=== PATIENT | female | born 1990 | race Caucasian/White ===

== ENCOUNTER 2019-06-25 05:33 | Inpatient (IN) | payer OTHER ==
[2019-06-25] MEDS ORDERED: CITRIC ACID/SODIUM CITRATE 30 ML UNIT-DOSE CUP PO ONE ×2 (07:32→07:34)
[2019-06-25] MEDS ORDERED: ELECTROLYTE-148 SOLN 500 ML IV ONE (07:32)
[2019-06-25] MEDS ORDERED: ceFAZolin 2 GRAM PREMIX BAG IVPB ONE (07:35)
[2019-06-25 07:36] VITALS: BMI 30.9
[2019-06-25] MEDS ORDERED: ELECTROLYTE-148 SOLN 1,000 ML IV SCH (07:45)
[2019-06-25] MEDS ORDERED: OXYTOCIN 20 UNITS in 0.9% NS 20 UNIT/1,000 ML INFUS.BAG IV ONE ×2 (08:03→09:16)
[2019-06-25] MEDS ORDERED: morphine SULFATE/PF 0.5 MG/ML (2cc Syringe - QUVA) ONE (08:08)
[2019-06-25] MEDS ORDERED: PROPOFOL 20 ML ONE (08:08)
[2019-06-25] MEDS ORDERED: SUCCINYLCHOLINE CHLORIDE 200 MG/10 ML SYRINGE ONE (08:09)
[2019-06-25] MEDS ORDERED: ePHEDrine SULFATE 50 MG/1 ML AMPULE ONE (08:09)
--- NOTE | 2019-06-25 08:18 | HP ---
Past Medical History - Primary Care Physician PCP:: Wesly Mora - Admission Chief Complaint: Scheduled repeat CD History of Present Illness: patient is doing well and all questions answered. Risks and complications of procedures discussed. History Source: Patient Limitations to Obtaining History: No Limitations - Past Medical History CARDIAC CATH TECH: No: Alzheimer's, CVA, Dementia, Migraine, Multiple Sclerosis, Peripheral Neuropathy, Parkinson's, Seizure, Syncope, TIA, Vertigo, Other Cardiovascular: No: AFIB, Aneurysm, Aortic Insufficiency, Aortic Stenosis, CAD, CHF, Deep Vein Thrombosis, HTN, Hyperlipdemia, ID, Mitral Insufficiency, Mitral Stenosis, Murmur, Pulmonary Hypertension, Other Pulmonary: No: Asthma, Bronchitis, Cancer, COPD, O2 Dependent, Pneumonia, Previously Intubated, Pulmonary Embolus, Pulmonary Fibrosis, Sleep Apnea, Other Gastrointestinal: No: Ascites, Cancer, Constipation, Crohn's Disease, Diverticulitis, Diverticulosis, Esophageal Varices, Gastritis, GERD, GI Bleed, Hemorrhoids, Hiatal Hernia, Inflamatory Bowel Disease, Irritable Bowel Disease, Pancreatitis, Peptic Ulcer Disease, Ulcerative Colitis, Other Hepatobiliary: No: Cirrhosis, Cholelithiasis, Cholecystitis, Choledocholithiasis , Hepatitis A, Hepatitis B, Hepatitis C, Other Renal/: No: Renal Failure, Renal Inusuff, BPH, Cancer, Hematuria, Hemodialysis , Neurogenic Bladder, Renal Calculi, UTI, Other Reproductive: No: Ectopic , Endometriosis, Fibroids, PID, Polycystic Ovary Syndrome, Postmenopausal, Other ...: 2 ...Para: 1 ...Term: 1 ...: 0 ...Spon : 0 ...Induced : 0 ...Multiple Gestation: 0 ...LMP: 09/06/18 ... Weeks Gestation by Dates: 41.5 ...EDC by Dates: 06/13/19 ...EDC by Sono: 07/02/19 Heme/Onc: No: Anemia, B12 Deficiency, Bleeding Disorder, Cancer, Current Chemotherapy, Current Radiation Therapy, Hemochromatosis, Hypercoaguable State, Myeloproliferative Synd, Sickle Cell Disease, Sickle Cell Trait, Thrombocytopenia, Other Infectious Disease: No: AIDS, C-Diff, Herpes Zoster, HIV, MRSA, STD's, Tuberculosis, VREF, Other Psych: No: Addictions, Anxiety, Bipolar, Depression, Panic, Psychosis, Schizophrenia, Other Musculoskeletal: No: Bursitis, Chronic low back pain, Hemiparesis, Hemiplegia, Osteoarthritis, Paraplegia, Other Rheumatology: No: Fibromyalgia, Gout, Lupus, Rheumatoid Arthritis, Sarcoidosis, Vasculitis, Other ENT: No: Allergic Rhinitis, Sinusitis, Other Endocrine: No: Preble's Disease, Gadsden's Disease, Diabetes Insipidus, Diabetes Mellitus, Hyperparathyroidism, Hyperthyroidism, Hypothyroidism, Osteopenia, SIADH, Other Dermatology: No: Basal Cell, Cellulitis, Eczema, Melanoma, Psoriasis, Squamous Cell, Other - Past Surgical History Past Surgical History: Yes: Hx Myomectomy: No Hx Transabdominal Cerclage: No - Smoking History Smoking history: Never smoked Have you smoked in the past 12 months: No - Alcohol/Substance Use Hx Alcohol Use: No Home Medications - Allergies Allergies/Adverse Reactions: Allergies Allergy/AdvReac Type Severity Reaction Status Date / Time No Known Allergies Allergy Verified 06/25/19 07:38 - Home Medications Home Medications: Ambulatory Orders Vits96/Iron Fum/Folic [ Tablet] 1 tablet PO DAILY 04/22/19 Insulin NPH [Novolin N Vial -] 8 units SQ DAILY 06/25/19 Insulin NPH [Novolin N Vial -] 24 units SQ HS 06/25/19 Family Medical History Family History: Unremarkable Review of Systems - Review of Systems Constitutional: reports: No Symptoms, Weakness Eyes: reports: No Symptoms HENT: reports: No Symptoms, Ocular Prosthesis Neck: reports: No Symptoms Cardiovascular: reports: No Symptoms Respiratory: reports: No Symptoms Gastrointestinal: reports: No Symptoms Genitourinary: reports: No Symptoms Breasts: reports: No Symptoms Reported Musculoskeletal: reports: No Symptoms Integumentary: reports: No Symptoms Endocrine: reports: No Symptoms Hematology/Lymphatic: reports: No Symptoms Psychiatric: reports: No Symptoms Physical Exam - Maternity Vital Signs: Vital Signs Temperature 97.7 F 06/25/19 05:33 Pulse Rate 86 06/25/19 05:33 Respiratory Rate 18 06/25/19 05:33 Blood Pressure 103/74 06/25/19 05:33 O2 Sat by Pulse Oximetry (%) Constitutional: Yes: Well Nourished, Calm HENT: Yes: Atraumatic Neck: Yes: Supple Cardiovascular: Yes: Regular Rate and Rhythm Breast(s): Yes: Other (deferred) - Abdominal Exam/OB Number of Fetuses: Single Presentation: Vertex Contractions: No Regularity: Irritability Monitor Mode: External Heart Rate (range): 130 Category: I Accelerations: Uniform Decelerations: None - Vaginal Exam/OB Speculum Exam: No - Physical Exam Musculoskeletal: Yes: WNL Extremities: Yes: WNL Edema: Yes Edema: LLE: Trace, RLE: Trace Integumentary: Yes: WNL ...Motor Strength: WNL Psychiatric: Yes: Alert, Oriented Imaging - Results Ultrasound: Report Reviewed Problem List - Problems (1) Previous delivery affecting Code(s): O34.219 - MATERNAL CARE FOR UNSP TYPE SCAR FROM PREVIOUS DEL (2) Gestational diabetes mellitus (GDM) Code(s): O24.419 - GESTATIONAL DIABETES MELLITUS IN , UNSP CONTROL Assessment/Plan 29 y/o @ 39.0wks previous CD and desiring repeat, well controlled A2GDM, reassuring status. Risks and complications discussed. All questions answered and informed consent obtained. -Proceed as planned
[2019-06-25] MEDS ORDERED: oxyCODONE HCL 5 MG TABLET PO PRN (09:18)
[2019-06-25] MEDS ORDERED: morphine SULFATE/PF 0.5 MG/ML (2cc Syringe - QUVA) EP ONE (09:20)
[2019-06-25] MEDS ORDERED: OXYTOCIN 20 UNITS in 0.9% NS 20 UNIT/1,000 ML INFUS.BAG IV SCH (09:30)
--- NOTE | 2019-06-25 09:39 | OP ---
Operative Note - Note: Operative Date: 06/25/19 (Dic # [id number]) Pre-Operative Diagnosis: Previous CD, GDM, desiring repeat Operation: PLTCD Findings: see dictation Post-Operative Diagnosis: Same as Pre-op Surgeon: Wesly Mora Seismograph Computer: Lamin Chavira Anesthesia: Spinal Estimated Blood Loss (mls): 700 Fluid Volume Replaced (mls): 1,000 Operative Report Dictated: Yes
[2019-06-25] MEDS ORDERED: IBUPROFEN 800 MG/8 ML IJ IVPB ONE ×2 (09:58→10:04)
[2019-06-25] MEDS: IBUPROFEN 800 MG/8 ML IJ IVPB PRN ×2 (10:00→20:58)
[2019-06-25] MEDS ORDERED: ONDANSETRON 4 MG/2 ML VIAL IVPUSH PRN (10:03)
--- NOTE | 2019-06-25 13:19 | OP ---
DATE OF OPERATION: 06/25/2019 PREOPERATIVE DIAGNOSES: A 29-year-old, 2, para 1, at 39 weeks of gestation; A2 gestational diabetes, well controlled; prior section, desiring repeat. POSTOPERATIVE DIAGNOSES: A 29-year-old, 2, para 1, at 39 weeks of gestation; A2 gestational diabetes, well controlled; prior section, desiring repeat. PROCEDURE: Repeat low transverse section. SURGEON: Manuel Cervantes MD WEATHER FORECASTER: HANH Amaya ESTIMATED BLOOD LOSS: 700. ANESTHESIA: Spinal. INTRAVENOUS FLUIDS: 1 L of crystalloid. URINE: Clear. COMPLICATIONS: None. FINDINGS: A lower abdominal scar consistent with prior section. A moderate amount of subcutaneous fibrotic tissue. The fascia was taken adherent to the underlying rectus muscles. The rectus muscles were fused to each other in the midline. No parietal or peritoneal adhesions. The bladder was slightly adherent to the lower uterine segment. The lower uterine segment was slightly effaced. in cephalic presentation, clear amniotic fluid scant. Ureters and bilateral tubes and ovaries consistent with normal anatomy. Bladder dome and rectus muscle fascial interface dry with no evidence of trauma. PROCEDURE: The patient was taken to the operating room where anesthesia was found to be adequate. She was then prepped and draped in the normal sterile fashion. Urinary Ríos catheter was properly and atraumatically placed. Appropriate timeout took place. A Pfannenstiel skin incision was made following prior section scar. Incision carried to underlying fascia with the Bovie. The fascia was incised in the midline and incision was extended laterally with sharp dissection. The underlying rectus muscles were dissected off sharply. The rectus muscles were in the midline superiorly. Entry into the peritoneal cavity revealed no adhesions. Incision was extended inferiorly with sharp dissection. A bladder blade was placed in the lower uterine segment as noted above. A lower uterine segment incision was made with the scalpel approximately 5 cm above the vesicouterine junction and incision extended laterally with blunt dissection. Amniotomy revealed clear amniotic fluid and scant. Infant delivered through the surgical incision with mild fundal pressure. Loose nuchal cord removed. Cord clamped after delay. handed off to the NICU staff. Placenta delivered manually and intact. Uterus exteriorized and the intrauterine cavity cleared of all clots and debris. Lower uterine segment incision reapproximated with 1-0 Polysorb running locked sutures with excellent structural reapproximation and hemostasis achieved with one-layer suture. The uterus internalized to the pelvic cavity and gutters cleared of all clots and debris. The bladder dome and rectus muscle fascial interface examined and as noted above. Fascial incision reapproximated with 0 Polysorb running nonlocked suture with excellent structural reapproximation achieved and confirmed by deep palpation by the surgeon. Subcutaneous tissues were copiously irrigated and bleeders neutralized with Bovie cautery. Skin incision was reapproximated with surgical jadon. Instrument count reported as correct x2 by the staff. MANUEL CERVANTES MD [id number] MTDD
--- NOTE | 2019-06-26 08:40 | PN ---
Post Progress Note - Subjective Subjective: Doing well. Pain controlled. No fevers/chills. Type of Delivery: Repeat C/S Vital Signs: Vital Signs Temperature 97.8 F 06/26/19 06:00 Pulse Rate 116 H 06/26/19 06:00 Respiratory Rate 18 06/26/19 06:00 Blood Pressure 121/73 06/26/19 06:00 O2 Sat by Pulse Oximetry (%) 98 06/25/19 10:05 Uterus: Yes: Fundus below umbilicus Abdomen/GI: Yes: Abdomen soft, Passing flatus, Tolerating PO Lochia: Yes: Rubra Lochia, amount: Small Extremities: Yes: Calves non-tender Perineum: Yes: Intact Activity: Ambulating Assessment/Plan 29yo s/p RLTCS, POD#1 Routine PP care PO pain control Labs reviewed D/C SHAN Ríos Anticipate d/c to home by POD#4 Mari Palmer MD
[2019-06-26] MEDS: IBUPROFEN 800 MG/8 ML IJ IVPB PRN (08:48)
[2019-06-26 08:56] LABS: BASO % 0.3 % (0-2.0); EOS % 0.7 % (0-4.5); HEMATOCRIT 36.4 % (32.4-45.2); HEMOGLOBIN 12.2 GM/dL (10.7-15.3); LYMPH % 9.7 % (8-40); MCH 29.9 pg (25.7-33.7); MCHC 33.6 g/dl (32.0-36.0); MEAN CELL VOLUME 89.1 fl (80-96); MEAN PLT VOLUME 8.3 fl (7.5-11.1); MONO % 4.5 % (3.8-10.2); NEUT % 84.8 % (42.8-82.8); PLATELET COUNT 281 K/MM3 (134-434); RBC 4.09 M/mm3 (3.60-5.2); RDW 13.4 % (11.6-15.6); WHITE BLOOD COUNT 18.1 K/mm3 (4.0-10.0)
[2019-06-26] MEDS ORDERED: BISACODYL 10 MG SUPP.RECT RC PRN (09:19)
[2019-06-26] MEDS ORDERED: FLU VACCINE QUAD 60 MCG/0.5 ML (MDV 19-20) IM ONE (10:00)
[2019-06-26] MEDS ORDERED: FLU VACC QS2019-20(6MOS UP)/PF 60 MCG/0.5 ML SYRINGE IM ONE (10:00)
[2019-06-26] MEDS ORDERED: DIPHTH,PERTUSS(ACELL),TET 0.5 ML DISP.SYRIN IM ONE (10:00)
--- NOTE | 2019-06-26 10:24 | PN ---
Progress Note (short form) - Note Progress Note: Anesthesia Post Op Note Pt s/p spinal for c/section Pt awake alert denies n/v; h/a Ambulating well, don in situ Pain well controlled VSS no apparent anesthesia complications Coleen Sears.
[2019-06-26] MEDS: IBUPROFEN 600 MG TABLET (FP) PO PRN (19:12)
[2019-06-26] MEDS: ACETAMINOPHEN 325 MG TABLET (FP) PO PRN (19:12)
[2019-06-26] MEDS: SIMETHICONE 80 MG TAB.CHEW (FP) PO PRN (19:12)
[2019-06-27] MEDS: ACETAMINOPHEN 325 MG TABLET (FP) PO PRN ×3 (02:09→20:50)
[2019-06-27] MEDS: IBUPROFEN 600 MG TABLET (FP) PO PRN ×3 (02:10→20:50)
[2019-06-27] MEDS: SIMETHICONE 80 MG TAB.CHEW (FP) PO PRN ×3 (02:10→20:49)
--- NOTE | 2019-06-27 14:00 | PN ---
Post Progress Note - Subjective Subjective: Doing well. Pain controlled. No fevers/chills. Ambulating w/o difficulty Type of Delivery: Repeat C/S Vital Signs: Vital Signs Temperature 98.0 F 06/27/19 10:00 Pulse Rate 91 H 06/27/19 10:00 Respiratory Rate 17 06/27/19 10:00 Blood Pressure 104/73 06/27/19 10:00 O2 Sat by Pulse Oximetry (%) 98 06/25/19 10:05 Uterus: Yes: Fundus Firm Incision: Yes: Dressing dry and intact, Goodwin intact Abdomen/GI: Yes: Abdomen soft Lochia: Yes: Rubra Lochia, amount: Small Extremities: Yes: Calves non-tender Activity: Ambulating - Labs Labs: CBC WBC 18.1 K/mm3 (4.0-10.0) H 06/26/19 08:10 RBC 4.09 M/mm3 (3.60-5.2) 06/26/19 08:10 Hgb 12.2 GM/dL (10.7-15.3) 06/26/19 08:10 Hct 36.4 % (32.4-45.2) 06/26/19 08:10 MCV 89.1 fl (80-96) 06/26/19 08:10 MCH 29.9 pg (25.7-33.7) 06/26/19 08:10 MCHC 33.6 g/dl (32.0-36.0) 06/26/19 08:10 RDW 13.4 % (11.6-15.6) 06/26/19 08:10 Plt Count 281 K/MM3 (134-434) 06/26/19 08:10 MPV 8.3 fl (7.5-11.1) 06/26/19 08:10 Absolute Neuts (auto) 15.3 K/mm3 (1.5-8.0) H 06/26/19 08:10 Neutrophils % 84.8 % (42.8-82.8) H 06/26/19 08:10 Lymphocytes % 9.7 % (8-40) D 06/26/19 08:10 Monocytes % 4.5 % (3.8-10.2) 06/26/19 08:10 Eosinophils % 0.7 % (0-4.5) D 06/26/19 08:10 Basophils % 0.3 % (0-2.0) 06/26/19 08:10 Nucleated RBC % 0 % (0-0) 06/26/19 08:10 Assessment/Plan 29yo s/p RLTCS, POD#2 Routine PP care PO pain control Labs reviewed Anticipate d/c to home tomorrow per pt request Mari Pamler MD
[2019-06-28 07:47] VITALS: BP 120/81; PULSE 82; TEMP 98.2
[2019-06-28 07:59] LABS: BASO % 0.4 % (0-2.0); EOS % 2.1 % (0-4.5); HEMATOCRIT 34.8 % (32.4-45.2); LYMPH % 20.9 % (8-40); MCH 30.7 pg (25.7-33.7); MCHC 34.4 g/dl (32.0-36.0); MEAN CELL VOLUME 89.4 fl (80-96); MEAN PLT VOLUME 8.2 fl (7.5-11.1); NEUT % 70.6 % (42.8-82.8); PLATELET COUNT 310 K/MM3 (134-434); RBC 3.89 M/mm3 (3.60-5.2); RDW 13.3 % (11.6-15.6); WHITE BLOOD COUNT 10.7 K/mm3 (4.0-10.0)
--- NOTE | 2019-06-28 10:02 | DS ---
Physical Examination Vital Signs: Vital Signs Temperature 98.2 F 06/28/19 07:46 Pulse Rate 82 06/28/19 07:46 Respiratory Rate 14 06/28/19 07:46 Blood Pressure 120/81 06/28/19 07:46 O2 Sat by Pulse Oximetry (%) 98 06/25/19 10:05 Constitutional: Yes: Well Nourished, No Distress, Calm Eyes: Yes: WNL, Conjunctiva Clear, EOM Intact HENT: Yes: WNL, Atraumatic, Normocephalic Neck: Yes: WNL, Supple, Trachea Midline Cardiovascular: Yes: WNL, Regular Rate and Rhythm Respiratory: Yes: WNL, Regular, CTA Bilaterally Gastrointestinal: Yes: WNL, Normal Bowel Sounds Musculoskeletal: Yes: WNL Extremities: Yes: WNL Edema: No Integumentary: Yes: WNL Neurological: Yes: WNL, Alert, Oriented ...Motor Strength: WNL Psychiatric: Yes: WNL Labs: CBC, BMP 06/28/19 06:57 Discharge Summary Problems reviewed: Yes Reason For Visit: C SECTION Current Active Problems Gestational diabetes mellitus (GDM) (Acute) Previous delivery affecting (Acute) Hospital Course: Patient presented for a scheduled RLTCS She had an uncomplicated procedure She met all postoperative milestones She was discharged home on POD#3 in stable condition Condition: Stable - Instructions Diet, Activity, Other Instructions: Please return to regulardiet as tolerated, activity as recommended by physician. Follow up within a week for incision check. Call MD with any questions or concerns. Referrals: Mike Jones [Primary Care Provider] - Wesly Mora MD [Staff Physician] - Disposition: HOME - Home Medications Comprehensive Discharge Medication List: Ambulatory Orders Vits96/Iron Fum/Folic [ Tablet] 1 tablet PO DAILY 04/22/19 Acetaminophen [Tylenol] 650 mg PO Q6H PRN #20 capsule MDD 5 06/25/19 Ibuprofen 600 mg PO Q6H PRN #30 tablet 06/25/19 Insulin NPH [Novolin N Vial -] 8 units SQ DAILY 06/25/19 Insulin NPH [Novolin N Vial -] 24 units SQ HS 06/25/19 Oxycodone HCl 5 mg PO Q6H PRN #12 tablet MDD 5 06/25/19
--- NOTE | 2019-06-30 16:13 | PATH ---
Surgical Pathology Report Patient Name: ALANNAH GOMEZ Med. Rec. 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 Electronically Signed Celine Schwartz M.D. Gross Description The specimen is received fresh labeled placenta and is a 405 gram, 15.5 x 13.5 x 2.8 cm. placenta with attached membranes and umbilical cord. The attached membranes are cruz, thick, cloudy and insert marginally. The umbilical cord measures 33 cm. in length and averages 1 cm. in diameter. The cord inserts eccentrically, 3 cm. to the nearest margin. No true knots or strictures are identified. Cut surface of the umbilical cord reveals 3 vessels. The surface is redd-blue with minimal fibrin deposition and appropriate caliber vessels. The maternal surface is red-brown with focal defects. Sectioning reveals red-brown, spongy parenchyma. No lesions are identified. Termite Inspector sections are submitted in three cassettes as follows: 1- membrane rolls and umbilical cord; 2-3- full thickness sections of placenta. /06/27/2019 [facility]06/27/2019
== END 2019-06-28 14:05 | disposition home or self-care (01) | DRG 540 ==
LOC: JLDR 05:33 → J3W 10:58
PROVIDERS: ADMIT Student in an Organized Health Care Education/Training Program; ATTEND Student in an Organized Health Care Education/Training Program
PROC: 10D00Z1 Extraction of Products of Conception, Low, Open Approach (ICD-10-PCS; principal; 2019-06-25)
DX: O24.429 Gestational diabetes mellitus in childbirth, unspecified control (principal); O34.219 Maternal care for unspecified type scar from previous cesarean delivery; Z3A.39 39 weeks gestation of pregnancy; Z37.0 Single live birth
CPT/HCPCS: 36415; 82962; 85025; 88307-TC; 90686; 90715; G0008

== ENCOUNTER 2021-01-18 16:15 | Emergency (ER) | payer OTHER ==
[2021-01-18 16:35] VITALS: BP 118/85; PULSE 85; TEMP 98.4; BMI 28.7
[2021-01-18] MEDS ORDERED: ONDANSETRON 4 MG/2 ML VIAL IVPUSH ONE (17:03)
[2021-01-18] MEDS ORDERED: SODIUM CHLORIDE 1,000 ML IV STA (17:03)
[2021-01-18] MEDS ORDERED: MAG HYDROX/AL HYDROX/SIMETH 30 ML UNIT-DOSE CUP PO ONE (17:05)
[2021-01-18] MEDS ORDERED: FAMOTIDINE 10 MG TABLET PO ONE (17:05)
[2021-01-18] MEDS ORDERED: FAMOTIDINE 20 MG/50 ML IVPB 20 MG/50 ML MG IVPB ONE ×2 (17:25→17:33)
[2021-01-18] MEDS ORDERED: MAG HYDROX/AL HYDROX/SIMETH 30 ML UNIT-DOSE CUP ONE (17:25)
[2021-01-18] MEDS ORDERED: ONDANSETRON 4 MG/2 ML VIAL ONE (17:25)
[2021-01-18 18:22] LABS: BASO % 0.7 % (0-2.0); EOS % 1.7 % (0-4.5); HEMATOCRIT 40.3 % (32.4-45.2); HEMOGLOBIN 13.6 GM/dL (10.7-15.3); LYMPH % 25.1 % (8-40); MCHC 33.8 g/dl (32.0-36.0); MEAN CELL VOLUME 85.8 fl (80-96); MEAN PLT VOLUME 7.5 fl (7.5-11.1); MONO % 7.1 % (3.8-10.2); NEUT % 65.4 % (42.8-82.8); PLATELET COUNT 447 10^3/uL (134-434); RDW 12.7 % (11.6-15.6); URINE APPEARANCE CLEAR; URINE BILIRUBIN NEGATIVE (NEGATIVE); URINE COLOR YELLOW; URINE GLUCOSE (UA) NEGATIVE (NEGATIVE); URINE KETONE NEGATIVE (NEGATIVE); URINE LEUK ESTERASE NEGATIVE (NEGATIVE); URINE NITRITE NEGATIVE (NEGATIVE); URINE PROTEIN NEGATIVE (NEGATIVE)
[2021-01-18 18:37] LABS: HCG,QUALITATIVE URINE Negative
[2021-01-18 18:39] LABS: CALCIUM 9.1 mg/dL (8.5-10.1)
[2021-01-18 18:40] LABS: ALBUMIN 3.8 g/dl (3.4-5.0); BLOOD UREA NITROGEN 8.1 mg/dL (7-18)
[2021-01-18 18:43] LABS: CREATININE 0.8 mg/dL (0.55-1.3)
[2021-01-18 18:45] LABS: BILIRUBIN,TOTAL 0.3 mg/dL (0.2-1); TOT PROT 7.3 g/dl (6.4-8.2)
== END 2021-01-18 19:13 | disposition home or self-care (01) ==
LOC: JER 16:15
PROC: 3E033GC Introduction of Other Therapeutic Substance into Peripheral Vein, Percutaneous Approach (ICD-10-PCS; principal; 2021-01-18)
PROC: 3E033GC Introduction of Other Therapeutic Substance into Peripheral Vein, Percutaneous Approach (ICD-10-PCS; 2021-01-18)
PROC: 3E033GC Introduction of Other Therapeutic Substance into Peripheral Vein, Percutaneous Approach (ICD-10-PCS; 2021-01-18)
PROC: 3E0337Z Introduction of Electrolytic and Water Balance Substance into Peripheral Vein, Percutaneous Approach (ICD-10-PCS; 2021-01-18)
DX: K29.00 Acute gastritis without bleeding (principal)
CPT/HCPCS: 36415; 80053; 81003; 83690; 84703; 85025; 87086; 99284-25